=== PATIENT | female | born 1985 | race Caucasian/White ===

== ENCOUNTER 2021-01-01 20:05 | Emergency (ER) | payer BC, SELFPAY ==
[2021-01-01 20:10] VITALS: BP 120/67; PULSE 97; RESP 18; TEMP 36.6; O2SAT 100
[2021-01-01 20:22] LABS: Basophils Percent Auto 0.2 % (0.2-1.2); Eosinophils Absolute Auto 0.1 K/mm3 (0-0.3); Eosinophils Percent Auto 1.1 % (0-4.4); Hematocrit 37.8 % (37.0-47.0); Hemoglobin 12.3 g/dL (12.0-15.0); Immature Granulocyte Absolute 0.02 K/mm3 (0.00-0.031); Immature Granulocyte Percent A 0.2 % (0-0.5); Lymphocytes Percent Auto 25.9 % (18.3-44.2); Mean Corpuscular HGB Conc 32.5 g/dl (32-36); Mean Corpuscular Hemoglobin 29.1 pg (26-34); Mean Corpuscular Volume 89.6 fl (80-100); Mean Platelet Volume 9.6 fl (7.4-10.4); Monocytes Absolute Auto 0.6 K/mm3 (0.1-0.6); Monocytes Percent Auto 5.5 % (2.6-8.5); Neutrophils Percent Auto 67.1 % (45.5-73.1); Platelet Count Result 241 k/mm3 (150-375); Red Blood Count 4.22 M/mm3 (4.2-5.4); White Blood Count 10.4 K/mm3 (4.5-10.0)
[2021-01-02 00:12] VITALS: BP 110/65; PULSE 79; RESP 19; TEMP 36.5; O2SAT 100
--- NOTE | 2021-01-02 01:30 | ED.GENADULT ---
HPI - General Adult General Chief complaint: TELETYPE OPERATOR Stated complaint: 13 weeks and vaginal bleeding Time Seen by Provider: 01/02/21 01:11 History of Present Illness HPI narrative: Patient 35-year-old female presents the emergency department with chief complaint of vaginal bleeding. Patient reports that she is approximately 13 weeks had an ultrasound earlier this week that was within normal limits the patient reports that this evening she had a little bit of bleeding that has subsequently stopped. The patient denies any abdominal pain denies contractions denies vomiting or diarrhea. Patient reports that she is currently not having any active bleeding at this time. Patient reports that she is followed by the emergency [facility]. Related Data Home Medications Medication Instructions Recorded Confirmed sertraline [Zoloft] 100 mg PO DAILY 01/01/21 01/01/21 Allergies Allergy/AdvReac Type Severity Reaction Status Date / Time No Known Allergies Allergy Verified 01/02/21 01:52 Review of Systems Review of Systems: A 10 system review of systems was completed on the patient and is negative except for what is stated in the HPI. Nursing and ancillary documentation was reviewed. PMFSH Social History Social History Gender identity (if verbalized by the patient): Female Exam Narrative: GENERAL: Well-appearing, well-nourished, and in no acute distress. HEAD: Normocephalic, atraumatic. EYES: PERRLA and EOMI. ENT: Nares clear, no rhinorrhea or epistaxis. Mucous membranes moist. NECK: Supple. CHEST: Clear to auscultation. No respiratory distress. HEART: Regular rate and rhythm. No murmur heard. Normal peripheral pulses. ABDOMEN: Soft, nontender, nondistended, normal active bowel sounds. EXTREMITIES: Normal range of motion. No edema. SKIN: Warm, dry, no rash. NEURO: No focal deficits. Alert and oriented x3. PSYCH: Normal mood and affect. Course Vital Signs Vital signs: Vital Signs Temperature 36.6 C 01/01/21 20:10 Pulse Rate 97 01/01/21 20:10 Respiratory Rate 18 01/01/21 20:10 Blood Pressure 120/67 01/01/21 20:10 Pulse Oximetry 100 01/01/21 20:10 Temperature 36.5 C 01/02/21 00:12 Pulse Rate 83 01/02/21 01:52 Respiratory Rate 16 01/02/21 01:52 Blood Pressure 106/69 01/02/21 01:52 Pulse Oximetry 100 01/02/21 01:52 Procedures Other Procedure Procedure 1: Other Procedure: Bedside abdominal ultrasound. There is positive cardiac movement and good cardiac activity. Medical Decision Making Vital Signs Vital Signs: Vital Signs Temperature 36.6 C 01/01/21 20:10 Pulse Rate 97 01/01/21 20:10 Respiratory Rate 18 01/01/21 20:10 Blood Pressure 120/67 01/01/21 20:10 Pulse Oximetry 100 01/01/21 20:10 Temperature 36.5 C 01/02/21 00:12 Pulse Rate 83 01/02/21 01:52 Respiratory Rate 16 01/02/21 01:52 Blood Pressure 106/69 01/02/21 01:52 Pulse Oximetry 100 01/02/21 01:52 Lab Data Result diagrams: 01/01/21 20:16 Labs: Lab Results 01/01/21 01/01/21 01/01/21 Range/Units 20:15 20:16 20:16 WBC 10.4 H (4.5-10.0) K/mm3 RBC 4.22 (4.2-5.4) M/mm3 Hgb 12.3 (12.0-15.0) g/dL Hct 37.8 (37.0-47.0) % MCV 89.6 (80-100) fl MCH 29.1 (26-34) pg MCHC 32.5 (32-36) g/dl RDW 13.0 (11.5-14.5) % Plt Count 241 (150-375) k/mm3 MPV 9.6 (7.4-10.4) fl Immature Gran % (Auto) 0.2 (0-0.5) % Neut % (Auto) 67.1 (45.5-73.1) % Lymph % (Auto) 25.9 (18.3-44.2) % [place] % (Auto) 5.5 (2.6-8.5) % Eos % (Auto) 1.1 (0-4.4) % Baso % (Auto) 0.2 (0.2-1.2) % Lymph # (Auto) 2.70 (0.9-3.2) K/mm3 [place] # (Auto) 0.6 (0.1-0.6) K/mm3 Eos # (Auto) 0.1 (0-0.3) K/mm3 Baso # (Auto) 0.0 (0.0-0.1) K/mm3 Abs Immat Gran (auto) 0.02 (0.00-0.031) K/mm3 Absolute Neuts (auto) 7.0 H
[2021-01-02 01:52] VITALS: BP 106/69; PULSE 83; RESP 16; O2SAT 100
== END 2021-01-02 02:05 | disposition home or self-care (01) ==
PROVIDERS: Emergency Provider Emergency Medicine; PCP Nurse Practitioner
DX: O20.0 Threatened abortion (principal); Z3A.13 13 weeks gestation of pregnancy
CPT/HCPCS: 36415; 84702; 85025; 85461; 99284

== ENCOUNTER 2021-07-18 11:32 | Outpatient (RCR) | payer BC, SELFPAY ==
--- NOTE | 2021-07-18 14:35 | PC.NURSE ---
In - 1110 Out - 1253 History: Mother states she had a fast delivery at [facility] delivering a 39 EGA with no complications. Chief complaint today is poor weight gain with her baby girl. Mother reviews that her other girls were slow to gain weight as well and the director instructional material is concerned regarding the slow weight gain and suggested supplementation. ICP discussed with mother that she could have an OP appt, increase infants feedings, and return in 1 week for a weight follow up. Mother's medications are: PNV and Zoloft. The weight of the infant has caused her an increase of anxiety. Infant has been every 2-3 hours in the day and 3-4 at night. She states her milk came in on day 3. Medically mother has inverted nipples grade 2 and has put forth efforts to manage well with latching optimally. Infant has had 6-7 voids and 3-4 bowel movements. Observations: Infant latches well to both breast optimally. Infant swallows often and pulls away once with a milk let down but quickly latches and manages milk flow well. becomes sleepy and stops after 30 min. is weighed shows has had an intake of 2.27 grams. Mother placed back to both breast at individually different times. Final weight of infant after approximately 55 min is resulting of an intake of 2.47 grams. Plan of Care: RN recommended supplementation either with pumped breastmilk, donor human milk or formula. Mother will breastfeed every 2 hours during the daytime and every 3 hours at night with only one long stretch of no more than 4-5 hours in a 24 hours period. Reviewed with mother reasons to call ICP, appropriate intake/output for a 15 day old infant, jaundice, weight, stimulating to drink at the breast and not sleep. Mother voiced understanding of the plan to increase and milk supply. Mother has prepared formula to use if she doesn't have milk to pump when she returns home. Follow up call: Mother pumped one ounce of breastmilk from her breast after their arrival back to the house. Infant drank the additional pumped milk and is again. Mother states infant is awake and alert with . Mother understands there will be another follow up phone call tomorrow and infant returns to the ICP for a weekly weight check as scheduled.
--- NOTE | 2021-07-21 13:52 | PC.NURSE ---
3/2 Follow up call made and mother was , pumping, then feeding 2 oz of pumped milk to infant and supplementing with formula. 3/3 Weight check at the doctor's office today showed the had gain weight from 7-11 to 8-2. Mother plans on , pumping, then feeding and calling for a follow up earlier next week if she has any concerns. Mother voiced understanding of when to call the ICP.
== END 2021-10-16 23:59 | disposition home or self-care (01) ==
LOC: ANHOBOP 11:32
PROVIDERS: PCP Nurse Practitioner; Visit Provider Pediatrics
DX: Z39.1 Encounter for care and examination of lactating mother (principal)
CPT/HCPCS: 99204; 99211; G0463

== ENCOUNTER 2024-11-23 15:06 | Outpatient (CLI) | payer BC, SELFPAY ==
--- NOTE | ~2024-11-23 | MM_ITS ---
EXAMINATION: MM screening xavier BI w narinder HISTORY: Screening TECHNIQUE: Craniocaudal and mediolateral oblique 3-D tomosynthesis images were obtained and synthetic 2-D images were generated. CAD analysis was submitted and interpreted. COMPARISON: No prior mammogram is available for comparison at this institution. BREAST PARENCHYMAL COMPOSITION: Dense: The breasts are extremely dense, which lowers the sensitivity of mammography. FINDINGS: There is no evidence of suspicious mass, calcification, or architectural distortion to sugg est malignancy in either breast. There has been no suspicious interval change. IMPRESSION: 1. No mammographic evidence of malignancy. 2. Recommend routine screening mammography in one year. BI-RADS Category 1: Negative Reviewed, dictated and finalized at location A.
== END 2024-11-23 15:07 | disposition home or self-care (01) ==
LOC: MICIMG 15:06
PROVIDERS: PCP Student in an Organized Health Care Education/Training Program; Visit Provider Nurse Practitioner
DX: Z12.31 Encounter for screening mammogram for malignant neoplasm of breast (principal)
CPT/HCPCS: 77063; 77067